=== PATIENT | male | born 1990 | race African-American/Black ===

== ENCOUNTER 2018-03-19 18:08 | Observation (INO) ==
[2018-03-19] MEDS ORDERED: Ketorolac Inj 30 MG/ML (IVP) Vial IV.PUSH ONE (20:51)
--- NOTE | 2018-03-19 21:06 | ED ---
HPI General Chief complaint: Nausea/Vomiting/Diarrhea Stated complaint: flu symptoms Time Seen by Provider: 03/19/18 20:41 Source: patient and RN notes reviewed Mode of arrival: ambulatory History of Present Illness HPI narrative: 27yM presenting with tactile fevers, chills, nausea, and vomiting. The patient states that 2 days ago he began to have "cold sweats and feeling like I was burning up", associated with full-body myalgias and nausea. He reports loose stools 2 days ago which have since resolved, also reports 2 episodes of vomiting today. He also complains of "popping" in his right knee which he is concerned about. 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 Family history non-contributory. Related Data Home Medications Medication Instructions Recorded Confirmed No Known Home Medications 03/19/18 03/19/18 Allergies Allergy/AdvReac Type Severity Reaction Status Date / Time No Known Allergies Allergy Unverified 03/19/18 20:42 Review of Systems ROS: all other systems reviewed are negative Constitutional Reports chills and Reports fever(s) Eyes Denies blurry vision ENT Denies nasal congestion Cardiovascular Denies chest pain Respiratory Denies cough Gastrointestinal Denies abdominal pain, Reports nausea and Reports vomiting Genitourinary Denies dysuria Musculoskeletal Reports myalgias Neurologic Denies confusion Psychiatric Denies confusion PMFSH History History Provided By: Patient Social History Social History Substance History: Active Abuse Second Hand Smoke Exposure: Yes Smoking Status: Current some day smoker Tobacco Type: Cigarettes How Often Do You Have a Drink Containing Alcohol: 2 to 4 times a month Recent Travel in [facility] within the Last 8 Weeks: No Recent Out of Country Travel within the Last 8 Weeks: No Substance Abuse Detail Marijuana: Substance Use Status: Active Route Used Substance Abuse: Inhalation Immunization History Tetanus Immunization: <5 Years Hx Influenza Vaccine This Season: No Exam Const General: healthy appearing and no acute distress HENMT Head: normocephalic and atraumatic Face and sinus: normal facial exam Eyes General: appearance normal, both eyes and all related structures Pupils: PERRL Chest Chest: normal inspection of the chest Resp Effort & Inspection: normal respiratory effort Auscultation: no rhonchi and no wheezes Cardio Rate: regular rate Rhythm: regular rhythm GI Other: Soft, non-distended, minimal LLQ tenderness, no guarding or rebound Skin General: no rashes or lesions noted Neuro General: alert, awake, oriented x3 and no focal motor deficits Extrem Other: No tenderness, swelling, or deformity to right knee; normal ROM Psych Affect: normal affect Course Initial Documented Vital Signs Temperature 97.9 F 03/19/18 18:14 Pulse Rate 100 H 03/19/18 18:14 Respiratory Rate 17 03/19/18 18:14 Blood Pressure 163/65 H 03/19/18 18:14 Pulse Oximetry 98 03/19/18 18:14 Last Documented Vital Signs Temperature 97.9 F 03/19/18 18:14 Pulse Rate 83 03/19/18 20:46 Respiratory Rate 17 03/19/18 18:14 Blood Pressure 134/74 03/19/18 20:46 Pulse Oximetry 100 03/19/18 20:46 Medical Decision Making MDM Narrative Medical decision making narrative: Assessment: 27yM presenting with fevers, chills, myalgias, nausea, vomiting Plan: Pain control, antiemetics, IV fluids Labs CT abd/ pelvis Will also get right knee X-ray to r/o occult trauma or arthritis Addendum: Patient's CT scan shows no acute abnormalities, creatinine 3.8 with no previous labs available for comparison. CPK 300s. Unclear if this is an acute kidney injury due to rhabdo earlier in his clinical course or due to dehydration from nausea/ vomiting/ fever. The patient did receive IV contrast and 1 dose of toradol prior to results of BMP, given a total of 3L IV crystalloid. He will need continued IV hydration and recheck of kidney function in AM. He understands and agrees with plan. Case discussed with Dr. Dunn of [facility]. Medical Screen Exam Complete: Yes Emergency Medical Condition: Yes Differential Diagnosis Differential Diagnosis: Differential diagnosis includes, but is not limited to: viral syndrome/ gastroenteritis, gastritis, pancreatitis, appendicitis, right knee contusion/ arthritis/ occult trauma Lab Data Lab results reviewed: Yes I reviewed the patient's lab results. Result diagrams: 03/19/18 21:12 03/19/18 21:12 Lab Results 03/19/18 03/19/18 03/19/18 Range/Units 21:12 21:12 21:12 WBC 14.3 H (4.0-11.0) th/mm3 RBC 5.98 H (4.50-5.90) mil/mm3 Hgb 17.6 H (13.0-17.0) gm/dL Hct 53.6 H (39.0-51.0) % MCV 89.6 (80.0-100.0) fL MCH 29.5 (27.0-34.0) pg MCHC 32.9 (32.0-36.0) % RDW 13.9 (11.6-17.2) % Plt Count 238 (150-450) th/mm3 MPV 8.8 (7.0-11.0) fL Prelim Diff (Auto) Slide review pending Neut % (Auto) 83.8 H (16.0-70.0) % Lymph % (Auto) 9.5 (9.0-44.0) % [place] % (Auto) 6.1 (0.0-8.0) % Eos % (Auto) 0.1 (0.0-4.0) % Baso % (Auto) 0.5 (0.0-2.0) % Neut # (Auto) 12.0 H (1.8-7.7) th/mm3 Lymph # (Auto) 1.4 (1.0-4.8) th/mm3 [place] # (Auto) 0.9 (0.0-0.9) th/mm3 Eos # (Auto) 0.0 (0.0-0.4) th/mm3 Baso # (Auto) 0.1 (0.0-0.2) th/mm3 WBC Differential . Diff Scan Auto diff confirmed Differential Comment . Toxic Vacuolation Present H (None) Platelet Estimate Normal (Normal) Platelet Morphology Normal (Normal) RBC Morphology Normal (Normal) Sodium 134 L (136-145) meq/L Potassium 3.8 (3.5-5.1) meq/L Chloride 93 L (98-107) meq/L Carbon Dioxide 26.7 (21.0-32.0) meq/L Anion Gap 14 (5-15) meq/L BUN 21 H (7-18) mg/dL Creatinine 3.86 H (0.60-1.30) mg/dL Estimated GFR 19 L (>89) mL/min Random Glucose 111 H (74-106) mg/dL Calcium 10.8 H (8.5-10.1) mg/dL Total Bilirubin 0.5 (0.2-1.0) mg/dL AST 21 (15-37) U/L ALT 25 (12-78) U/L Alkaline Phosphatase 83 (45-117) U/L Total Creatine Kinase 325 H (39-308) U/L CK-MB (CK-2) 1.0 (0.5-3.6) ng/mL CK-MB (CK-2) % 0.3 (0.0-4.0) % Total Protein 10.8 H (6.4-8.2) g/dL Albumin 5.5 H (3.4-5.0) g/dL Lipase 91 (73-393) U/L Imaging Data Radiologist's impression: Abdomen/Pelvis CT 03/19/18 20:51 CONCLUSION: 1. No acute inflammatory process. 2. No bowel obstruction. 3. Degenerative changes right SI joint. Knee X-Ray 03/19/18 20:51 CONCLUSION: No acute bony abnormality right knee. ECG Data Attestation: I personally reviewed and interpreted this ECG as follows: Interpretation: Rate: 84 BPM Rhythm: Sinus [place]: Normal Intervals: Normal intervals, no blocks, QTc 400 ms Q waves: aVL T waves: Flattened in aVL ST segments: J point elevations in V3-V4, otherwise no significant elevations or depressions Impression: Non-specific EKG, no previous EKG available for comparison. Discharge Plan Discharge Disposition Patient Disposition: 30 Still Patient Discharge Condition Condition: Stable Discharge Details Diagnosis: Acute kidney injury, Dehydration, Nausea and vomiting Physicians Team ED Provider: Brigid Neff Rxs /Orders / Referrals /Forms Prescriptions: No Action No Known Home Medications RF: 0 Discharge Interventions Interventions: Vital Signs Last Done: 03/19/18 20:46 Status ED Status: With Doctor
[2018-03-19 21:50] LABS: Albumin 5.5 g/dL (3.4-5.0); Anion Gap 14 meq/L (5-15); Aspartate Aminotransferase 21 U/L (15-37); Blood Urea Nitrogen 21 mg/dL (7-18); Calcium 10.8 mg/dL (8.5-10.1); Carbon Dioxide 26.7 meq/L (21.0-32.0); Chloride 93 meq/L (98-107); Glomerular Filtration Rate 19 mL/min (>89); Glucose,Random 111 mg/dL (74-106); Lipase 91 U/L (73-393); Potassium 3.8 meq/L (3.5-5.1); Sodium 134 meq/L (136-145)
[2018-03-19 21:51] LABS: Alanine Aminotransferase 25 U/L (12-78); Baso # (Auto) 0.1 th/mm3 (0.0-0.2); Baso % (Auto) 0.5 % (0.0-2.0); Eos % (Auto) 0.1 % (0.0-4.0); Hematocrit 53.6 % (39.0-51.0); Hemoglobin 17.6 gm/dL (13.0-17.0); Lymph # (Auto) 1.4 th/mm3 (1.0-4.8); Lymph % (Auto) 9.5 % (9.0-44.0); Mean Corpuscular HGB Conc 32.9 % (32.0-36.0); Mean Corpuscular Hemoglobin 29.5 pg (27.0-34.0); Mean Corpuscular Volume 89.6 fL (80.0-100.0); Mean Platelet Volume 8.8 fL (7.0-11.0); Mono # (Auto) 0.9 th/mm3 (0.0-0.9); Mono % (Auto) 6.1 % (0.0-8.0); Neut % (Auto) 83.8 % (16.0-70.0); Platelet Count 238 th/mm3 (150-450); Red Blood Count 5.98 mil/mm3 (4.50-5.90); Red Cell Distribution Width 13.9 % (11.6-17.2); White Blood Count 14.3 th/mm3 (4.0-11.0)
[2018-03-19] MEDS ORDERED: Sod Chloride 0.9% Inj 1,000 ML IV.SIG ONE ×2 (21:53→22:27)
[2018-03-19 21:54] LABS: Alkaline Phosphatase 83 U/L (45-117); Total Protein 10.8 g/dL (6.4-8.2)
[2018-03-19 22:34] LABS: CKMB Percent 0.3 % (0.0-4.0)
[2018-03-19 22:44] LABS: Platelet Estimate Normal (Normal); RBC Morphology Normal (Normal); Toxic Vacuolation Present
[2018-03-19 22:45] LABS: Platelet Morphology Normal (Normal)
[2018-03-20] MEDS ORDERED: Acetaminophen 325 MG Tablet PO PRN (01:30)
[2018-03-20] MEDS ORDERED: Bisacodyl 10 MG Supp RECTAL PRN (01:30)
[2018-03-20] MEDS: Sod Chloride 0.9% Inj 1,000 ML IV.CONT SCH ×3 (01:59→15:37)
[2018-03-20 07:17] LABS: Baso # (Auto) 0.1 th/mm3 (0.0-0.2); Baso % (Auto) 0.6 % (0.0-2.0); Eos # (Auto) 0.1 th/mm3 (0.0-0.4); Eos % (Auto) 0.9 % (0.0-4.0); Hemoglobin 14.6 gm/dL (13.0-17.0); Lymph # (Auto) 2.1 th/mm3 (1.0-4.8); Lymph % (Auto) 22.3 % (9.0-44.0); Mean Corpuscular HGB Conc 33.9 % (32.0-36.0); Mean Corpuscular Hemoglobin 30.3 pg (27.0-34.0); Mean Corpuscular Volume 89.2 fL (80.0-100.0); Mean Platelet Volume 8.5 fL (7.0-11.0); Mono % (Auto) 10.6 % (0.0-8.0); Neut # (Auto) 6.1 th/mm3 (1.8-7.7); Neut % (Auto) 65.6 % (16.0-70.0); Platelet Count 222 th/mm3 (150-450); Red Blood Count 4.82 mil/mm3 (4.50-5.90); Red Cell Distribution Width 13.9 % (11.6-17.2); White Blood Count 9.3 th/mm3 (4.0-11.0)
[2018-03-20 07:37] LABS: Calcium 8.7 mg/dL (8.5-10.1); Carbon Dioxide 25.2 meq/L (21.0-32.0); Potassium 3.5 meq/L (3.5-5.1)
[2018-03-20] MEDS ORDERED: Senna/Docusate Sodium 8.6/50 MG Tablet PO SCH (09:00)
[2018-03-20 12:19] LABS: Bilirubin,Urine Negative (Negative); Clarity,Urine Hazy (Clear); Color,Urine Yellow (Yellw/Straw); Glucose,Urine (UA) Negative (Negative); Hyaline Casts,Urine 1 /lpf (0-3); Leukocyte Esterase,Urine Negative (Negative); Mucus,Urine Few /lpf (Occasional); Nitrite,Urine Negative (Negative); Specific Gravity,Urine 1.054 (1.002-1.035); Squamous Epithelial Cell,Urine 1 /hpf (0-5)
[2018-03-20 12:26] LABS: Amphetamine Screen,Urine Neg (Neg); Barbiturate Screen,Urine Neg (Neg); Cannabinoid Screen,Urine Pos (Neg); Cocaine Screen,Urine Pos (Neg)
[2018-03-20 12:27] LABS: Opiate Screen,Urine Neg (Neg)
[2018-03-20 18:06] LABS: Calcium 7.9 mg/dL (8.5-10.1); Carbon Dioxide 29.7 meq/L (21.0-32.0); Potassium 3.4 meq/L (3.5-5.1)
--- NOTE | 2018-03-20 21:33 | ECG ---
Date Performed: 03/19/2018 Time Performed: 21:27:36 PTAGE: 27 years EKG: Sinus rhythm POSSIBLE LEFT ATRIAL ENLARGEMENT REPOLARIZATION ABNORMALITY NONSPECIFIC ST & T-WAVE ABNORMALITY ABNO RMAL ECG NO PREVIOUS TRACING DOCTOR: Dexter Rodriguez Interpretating Date/Time 03/20/2018 21:31:59
== END 2018-03-20 18:42 | disposition home or self-care (01) ==
LOC: NEPD 18:08 → NEDA 18:08 → NEPGCP 23:30
PROVIDERS: ADMIT Family Medicine; ATTEND Family Medicine
DX: F12.90 Cannabis use, unspecified, uncomplicated; R00.0 Tachycardia, unspecified; N17.9 Acute kidney failure, unspecified; Z83.3 Family history of diabetes mellitus; E86.0 Dehydration; F17.210 Nicotine dependence, cigarettes, uncomplicated; K52.9 Noninfective gastroenteritis and colitis, unspecified; A41.9 Sepsis, unspecified organism